=== PATIENT | female | born 1935 | race Asian ===

== ENCOUNTER 2021-01-11 20:15 | Inpatient (IN) | payer MEDICARE, MEDICAID ==
[~2021-01-11] VITALS: Ht 160 cm; Wt 56.7 kg
[2021-01-11] MEDS ORDERED: SODIUM CHLORIDE 0.9% 1,000 ML IV ONE (22:00)
[2021-01-11 22:46] LABS: BASOPHILS % 0.5 % (0.0-2.0); HEMATOCRIT. 47.4 % (36.0-48.0); HEMOGLOBIN. 16.4 g/dL (12.0-16.0); LYMPHOCYTES % 12.4 % (20.0-50.0); MEAN CORPUSCULAR HEMOGLOBIN 29.2 pg (28.0-32.0); MEAN CORPUSCULAR VOLUME 84.3 fL (81.0-99.0); MEAN PLATELET VOLUME 9.4 fl (7.4-10.4); MONOCYTES % 4.5 % (2.0-8.0); NEUTROPHILS % 82.6 % (40.0-76.0); PLATELET 280 x1000/uL (130-400); RED BLOOD CELL COUNT 5.62 mill/uL (4.2-5.4); RED CELL DISTRIBUTION WIDTH 13.5 % (11.6-14.6)
[2021-01-11 22:52] LABS: CHLORIDE 106 mEq/L (98-107)
[2021-01-11 23:00] LABS: CREATINE KINASE 861 IU/L (26-192)
[2021-01-12] MEDS ORDERED: ONDANSETRON HCL 4MG/2ML INJ IV PRN (02:45)
[2021-01-12] MEDS ORDERED: CLONIDINE 0.1MG TABLET PO PRN (02:45)
[2021-01-12] MEDS ORDERED: MAGNESIUM/ALUMINUM HYDROXIDE/SIMETHICONE 30ML UDC PO PRN (02:45)
[2021-01-12] MEDS ORDERED: GUAIFENESIN 200MG/10ML SUGAR FREE UDC PO PRN (02:45)
[2021-01-12] MEDS ORDERED: DOCUSATE SODIUM 100MG CAPSULE PO PRN (02:45)
[2021-01-12] MEDS: SODIUM CHLORIDE 0.45% 1,000 ML IV SCH ×2 (03:02→16:58)
[2021-01-12 06:42] LABS: CREATINE KINASE 429 IU/L (26-192)
[2021-01-12] MEDS: ASPIRIN 81MG EC TABLET PO SCH (10:02)
[2021-01-12] MEDS: AMLODIPINE 10MG TABLET PO SCH (10:03)
[2021-01-12 14:02] LABS: CREATINE KINASE 294 IU/L (26-192)
[2021-01-12 20:40] LABS: CLARITY URINE CLOUDY (CLEAR); COLOR URINE YELLOW (YELLOW); KETONES URINE TRACE (NEGATIVE); LEUKOCYTE ESTERASE URINE 3+ (NEGATIVE); NITRITE URINE NEGATIVE (NEGATIVE); OCCULT BLOOD URINE 2+ (NEGATIVE); PROTEIN URINE 2+ (NEGATIVE); SPECIFIC GRAVITY URINE 1.017 (1.005-1.030); UROBILINOGEN URINE 0.2 E.U./dL (0.2-1.0)
[2021-01-12 21:40] VITALS: BP 132/72
[2021-01-12 21:50] VITALS: BP 132/72
[2021-01-13] VITALS: BP 165/80
[2021-01-13] MEDS: SODIUM CHLORIDE 0.45% 1,000 ML IV SCH ×2 (05:26→18:59)
[2021-01-13 06:00] VITALS: BP 159/78
[2021-01-13 08:00] VITALS: BP 119/68
[2021-01-13 08:02] LABS: CHLORIDE 114 mEq/L (98-107)
[2021-01-13 08:10] LABS: LDL CHOLESTEROL 125 mg/dL (5-100)
[2021-01-13 08:11] LABS: BASOPHILS % 0.6 % (0.0-2.0); EOSINOPHILS % 0.8 % (0.0-5.0); HEMATOCRIT. 40.2 % (36.0-48.0); HEMOGLOBIN. 13.6 g/dL (12.0-16.0); LYMPHOCYTES % 12.2 % (20.0-50.0); MEAN CORPUSCULAR HEMOGLOBIN 28.7 pg (28.0-32.0); MEAN PLATELET VOLUME 9.6 fl (7.4-10.4); MONOCYTES % 7.6 % (2.0-8.0); NEUTROPHILS % 78.8 % (40.0-76.0); PLATELET 243 x1000/uL (130-400); RED BLOOD CELL COUNT 4.73 mill/uL (4.2-5.4); RED CELL DISTRIBUTION WIDTH 13.9 % (11.6-14.6)
[2021-01-13 08:12] LABS: HDL CHOLESTEROL 42 mg/dL (40-59)
[2021-01-13] MEDS: AMLODIPINE 10MG TABLET PO SCH (08:58)
[2021-01-13] MEDS: ASPIRIN 81MG EC TABLET PO SCH (08:58)
[2021-01-13] MEDS ORDERED: CEFTRIAXONE 1 G PREMIX 50 ML IV SCH (11:00)
[2021-01-13 12:00] VITALS: BP 147/44
[2021-01-13] MEDS: CEFTRIAXONE 1,000 MG in DEXTROSE 5% WATER 50 ML IV SCH (14:15)
[2021-01-13] MEDS: ACETAMINOPHEN 325MG TABLET PO PRN (14:21)
[2021-01-13 16:00] VITALS: BP 146/70
[2021-01-13] MEDS ORDERED: DEXTROSE 50% WATER 50ML SYRINGE IV PRN (16:00)
[2021-01-13] MEDS: BLOOD SUGAR DIAGNOSTIC STRIP TEST SCH ×2 (17:20→20:27)
[2021-01-13] MEDS: INSULIN LISPRO 100 UNITS/ML SUBCUT SCH ×2 (17:24→20:27)
[2021-01-13] MEDS ORDERED: FISH MT (18:17)
[2021-01-13] MEDS ORDERED: AMLO5TAB88 MT (18:17)
[2021-01-13] MEDS ORDERED: METF-414 MT (18:17)
[2021-01-13] MEDS ORDERED: TROL141. TP (18:17)
[2021-01-13] MEDS ORDERED: DONE5TAB26 MT (18:17)
[2021-01-13] MEDS ORDERED: ATOR20TA65 MT (18:17)
[2021-01-13] MEDS ORDERED: CHOL1CRY2 MC (18:17)
[2021-01-13] MEDS ORDERED: CIPR250S3 MT (18:17)
[2021-01-13] MEDS ORDERED: TOPUD PO (18:17)
[2021-01-13] MEDS ORDERED: GABA-529 MT (18:17)
[2021-01-13 20:00] VITALS: BP 138/54
[2021-01-14] VITALS: BP 155/67
[2021-01-14 04:00] VITALS: BP 151/61
[2021-01-14] MEDS: BLOOD SUGAR DIAGNOSTIC STRIP TEST SCH ×3 (07:20→16:56)
[2021-01-14] MEDS: INSULIN LISPRO 100 UNITS/ML SUBCUT SCH ×3 (07:50→16:57)
[2021-01-14 08:00] VITALS: BP 161/59
[2021-01-14] MEDS: ASPIRIN 81MG EC TABLET PO SCH (09:29)
[2021-01-14] MEDS: AMLODIPINE 10MG TABLET PO SCH (09:30)
[2021-01-14] MEDS: ACETAMINOPHEN 325MG TABLET PO PRN (09:30)
[2021-01-14] MEDS ORDERED: ATORVASTATIN CALCIUM 20MG TABLET PO SCH (10:45)
[2021-01-14] MEDS ORDERED: DONEPEZIL HCL 5MG TABLET PO SCH (10:45)
[2021-01-14] MEDS ORDERED: FISH OIL/OMEGA-3 FATTY ACIDS 1000MG CAPSULE PO SCH (10:45)
[2021-01-14] MEDS: METFORMIN HCL 500MG TABLET PO SCH ×2 (11:25→16:53)
[2021-01-14] MEDS: GABAPENTIN 100MG CAPSULE PO SCH ×3 (11:25→16:53)
[2021-01-14 12:00] VITALS: BP 156/65
[2021-01-14] MEDS: CEFTRIAXONE 1,000 MG in DEXTROSE 5% WATER 50 ML IV SCH (13:15)
[2021-01-14 16:00] VITALS: BP 138/60
[2021-01-14 16:42] VITALS: BP 156/65
== END 2021-01-14 17:21 | DRG 557 ==
LOC: ER 20:15 → MICUSO 01-12 00:06 → 6EST 01-12 20:58
PROVIDERS: ADMIT Hospitalist; ATTEND Hospitalist
DX: M62.82 Rhabdomyolysis (principal); G82.50 Quadriplegia, unspecified; N39.0 Urinary tract infection, site not specified; N17.9 Acute kidney failure, unspecified; I10 Essential (primary) hypertension; G89.29 Other chronic pain; M25.511 Pain in right shoulder; E11.9 Type 2 diabetes mellitus without complications; Z60.2 Problems related to living alone; M47.812 Spondylosis without myelopathy or radiculopathy, cervical region; M48.02 Spinal stenosis, cervical region; Z86.73 Personal history of transient ischemic attack (TIA), and cerebral infarction without residual deficits; M25.512 Pain in left shoulder; R79.89 Other specified abnormal findings of blood chemistry; E78.00 Pure hypercholesterolemia, unspecified; R26.9 Unspecified abnormalities of gait and mobility; E04.1 Nontoxic single thyroid nodule; R62.7 Adult failure to thrive; W18.39XA Other fall on same level, initial encounter; Y93.89 Activity, other specified; Y92.89 Other specified places as the place of occurrence of the external cause; Y99.8 Other external cause status; Z68.22 Body mass index [BMI] 22.0-22.9, adult; R53.1 Weakness
CPT/HCPCS: 36415; 71045; 73030; 80053; 80061; 81003; 82550; 82962; 83036; 83605; 85025; 93005; 93970; 97116; 97162; 97166; 99285; J0696; J1815; J7030; J7060

== ENCOUNTER 2021-01-14 17:30 | Inpatient (IN) | payer MEDICARE, MEDICAID ==
[~2021-01-14] VITALS: Ht 149.9 cm; Wt 56.7 kg
[~2021-01-14 17:30] MED LIST: AMLO5TAB88 MT; ATOR20TA65 MT; CHOL1CRY2 MC; CIPR250S3 MT; DONE5TAB26 MT; FISH MT; GABA-529 MT; METF-414 MT; TOPUD PO; TROL141. TP
[2021-01-14 18:00] VITALS: BP 143/62
[2021-01-14] MEDS ORDERED: ONDANSETRON HCL 4MG/2ML INJ IV PRN (18:15)
[2021-01-14] MEDS ORDERED: DOCUSATE SODIUM 100MG CAPSULE PO PRN (18:15)
[2021-01-14] MEDS ORDERED: CLONIDINE 0.1MG TABLET PO PRN (18:15)
[2021-01-14] MEDS ORDERED: MAGNESIUM/ALUMINUM HYDROXIDE/SIMETHICONE 30ML UDC PO PRN (18:15)
[2021-01-14] MEDS ORDERED: GUAIFENESIN 200MG/10ML SUGAR FREE UDC PO PRN (18:15)
[2021-01-14] MEDS ORDERED: DEXTROSE 50% WATER 50ML SYRINGE IV PRN (18:15)
[2021-01-14 19:00] VITALS: BP 158/70
[2021-01-14] MEDS ORDERED: INFLUENZA VACCINE 05/PF 0.5 ML SYRINGE IM ONE (19:15)
[2021-01-14] MEDS ORDERED: PNEUMOCOCCAL 23-VAL P-SAC VAC 0.5 ML IM ONE (19:15)
[2021-01-14 20:00] VITALS: BP 143/62
[2021-01-14] MEDS ORDERED: CEFTRIAXONE 1,000 MG in DEXTROSE 5% WATER 50 ML IV SCH ×2 (20:00→20:30)
[2021-01-14] MEDS: BLOOD SUGAR DIAGNOSTIC STRIP TEST SCH (21:11)
[2021-01-14] MEDS: SODIUM CHLORIDE 0.45% 1,000 ML IV SCH (21:15)
[2021-01-14] MEDS: INSULIN LISPRO 100 UNITS/ML SUBCUT SCH (21:16)
[2021-01-15] MEDS ORDERED: MAGNESIUM/ALUMINUM HYDROXIDE/SIMETHICONE 30ML UDC PO PRN (02:15)
[2021-01-15] MEDS: INSULIN LISPRO 100 UNITS/ML SUBCUT SCH ×4 (05:44→21:00)
[2021-01-15] MEDS: BLOOD SUGAR DIAGNOSTIC STRIP TEST SCH ×4 (05:44→21:04)
[2021-01-15] MEDS: SODIUM CHLORIDE 0.45% 1,000 ML IV SCH ×2 (06:51→21:06)
[2021-01-15 07:50] VITALS: BP 168/78
[2021-01-15] MEDS: ASPIRIN 81MG EC TABLET PO SCH (08:29)
[2021-01-15] MEDS: METFORMIN HCL 500MG TABLET PO SCH ×2 (08:29→17:53)
[2021-01-15] MEDS: AMLODIPINE 10MG TABLET PO SCH (08:29)
[2021-01-15] MEDS: FISH OIL/OMEGA-3 FATTY ACIDS 1000MG CAPSULE PO SCH (08:29)
[2021-01-15] MEDS: GABAPENTIN 100MG CAPSULE PO SCH ×3 (08:29→17:53)
[2021-01-15] MEDS: ATORVASTATIN CALCIUM 20MG TABLET PO SCH (08:30)
[2021-01-15] MEDS: DONEPEZIL HCL 5MG TABLET PO SCH (08:30)
[2021-01-15] MEDS: ACETAMINOPHEN 325MG TABLET PO PRN (08:36)
[2021-01-15] MEDS ORDERED: ASPIRIN 81MG TABLET PO SCH (09:00)
[2021-01-15 09:16] LABS: BASOPHILS % 0.8 % (0.0-2.0); EOSINOPHILS % 3.1 % (0.0-5.0); HEMATOCRIT. 39.8 % (36.0-48.0); HEMOGLOBIN. 13.4 g/dL (12.0-16.0); LYMPHOCYTES % 18.6 % (20.0-50.0); MEAN CORPUSCULAR HEMOGLOBIN 28.9 pg (28.0-32.0); MEAN CORPUSCULAR VOLUME 86.2 fL (81.0-99.0); MEAN PLATELET VOLUME 9.3 fl (7.4-10.4); MONOCYTES % 8.1 % (2.0-8.0); NEUTROPHILS % 69.4 % (40.0-76.0); PLATELET 217 x1000/uL (130-400); RED BLOOD CELL COUNT 4.62 mill/uL (4.2-5.4); RED CELL DISTRIBUTION WIDTH 13.7 % (11.6-14.6)
[2021-01-15 09:18] LABS: CHLORIDE 109 mEq/L (98-107)
[2021-01-15] MEDS: CEFTRIAXONE 1,000 MG in DEXTROSE 5% WATER 50 ML IV SCH (14:17)
[2021-01-15] MEDS ORDERED: POTASSIUM CHLORIDE 20MEQ TABLET SR PO NR (14:45)
[2021-01-15 20:00] VITALS: BP 151/73
[2021-01-16 04:30] VITALS: BP 159/76
[2021-01-16] MEDS: ACETAMINOPHEN 325MG TABLET PO PRN ×2 (04:31→13:56)
[2021-01-16] MEDS: BLOOD SUGAR DIAGNOSTIC STRIP TEST SCH ×4 (05:25→20:24)
[2021-01-16] MEDS: INSULIN LISPRO 100 UNITS/ML SUBCUT SCH ×4 (05:25→20:24)
[2021-01-16 08:00] VITALS: BP 161/74
[2021-01-16] MEDS: ASPIRIN 81MG EC TABLET PO SCH (08:48)
[2021-01-16] MEDS: AMLODIPINE 10MG TABLET PO SCH (08:48)
[2021-01-16] MEDS: METFORMIN HCL 500MG TABLET PO SCH ×2 (08:48→17:17)
[2021-01-16] MEDS: DONEPEZIL HCL 5MG TABLET PO SCH (08:48)
[2021-01-16] MEDS: FISH OIL/OMEGA-3 FATTY ACIDS 1000MG CAPSULE PO SCH (08:48)
[2021-01-16] MEDS: GABAPENTIN 100MG CAPSULE PO SCH ×3 (08:49→17:17)
[2021-01-16] MEDS: ATORVASTATIN CALCIUM 20MG TABLET PO SCH (08:49)
[2021-01-16] MEDS: SODIUM CHLORIDE 0.45% 1,000 ML IV SCH ×2 (12:00→22:37)
[2021-01-16] MEDS: BISACODYL 5MG TABLET PO PRN (13:04)
[2021-01-16] MEDS: CEFTRIAXONE 1,000 MG in DEXTROSE 5% WATER 50 ML IV SCH (13:04)
[2021-01-16 13:22] LABS: CHLORIDE 108 mEq/L (98-107)
[2021-01-16] MEDS ORDERED: NA PHOS,M-B/NA PHOS,DI-BA ENEMA 118ML PR NR ×2 (13:30→18:30)
[2021-01-16 14:26] LABS: FOLIC ACID (FOLATE) SERUM 15.6 ng/mL (>5.38)
[2021-01-16 20:00] VITALS: BP 125/51
[2021-01-16] MEDS ORDERED: POTASSIUM CHLORIDE 20MEQ TABLET SR PO NR (20:45)
[2021-01-17] MEDS: BLOOD SUGAR DIAGNOSTIC STRIP TEST SCH ×4 (05:45→21:42)
[2021-01-17] MEDS: INSULIN LISPRO 100 UNITS/ML SUBCUT SCH ×4 (05:45→21:00)
[2021-01-17 08:20] VITALS: BP 153/66
[2021-01-17] MEDS: ATORVASTATIN CALCIUM 20MG TABLET PO SCH (08:32)
[2021-01-17] MEDS: ASPIRIN 81MG EC TABLET PO SCH (08:32)
[2021-01-17] MEDS: GABAPENTIN 100MG CAPSULE PO SCH ×3 (08:32→17:13)
[2021-01-17] MEDS: FISH OIL/OMEGA-3 FATTY ACIDS 1000MG CAPSULE PO SCH (08:32)
[2021-01-17] MEDS: DONEPEZIL HCL 5MG TABLET PO SCH (08:32)
[2021-01-17] MEDS: METFORMIN HCL 500MG TABLET PO SCH ×2 (08:33→17:13)
[2021-01-17] MEDS: AMLODIPINE 10MG TABLET PO SCH (08:33)
[2021-01-17] MEDS: SODIUM CHLORIDE 0.45% 1,000 ML IV SCH (13:21)
[2021-01-17] MEDS: CEFTRIAXONE 1,000 MG in DEXTROSE 5% WATER 50 ML IV SCH (13:21)
[2021-01-17 20:00] VITALS: BP 125/62
[2021-01-17] MEDS: OPTH EMULSION OP SCH (21:44)
[2021-01-17] MEDS: RESTASIS 0.05% OP SCH (21:44)
[2021-01-18] MEDS: SODIUM CHLORIDE 0.45% 1,000 ML IV SCH ×2 (02:00→16:18)
[2021-01-18] MEDS: BLOOD SUGAR DIAGNOSTIC STRIP TEST SCH ×4 (06:38→21:02)
[2021-01-18 07:49] VITALS: BP 148/63
[2021-01-18] MEDS: METFORMIN HCL 500MG TABLET PO SCH ×2 (08:44→16:18)
[2021-01-18] MEDS: ATORVASTATIN CALCIUM 20MG TABLET PO SCH (08:44)
[2021-01-18] MEDS: DONEPEZIL HCL 5MG TABLET PO SCH (08:44)
[2021-01-18] MEDS: FISH OIL/OMEGA-3 FATTY ACIDS 1000MG CAPSULE PO SCH (08:44)
[2021-01-18] MEDS: GABAPENTIN 100MG CAPSULE PO SCH ×3 (08:44→16:18)
[2021-01-18] MEDS: AMLODIPINE 10MG TABLET PO SCH (08:44)
[2021-01-18] MEDS: ASPIRIN 81MG EC TABLET PO SCH (08:44)
[2021-01-18] MEDS: OPTH EMULSION OP SCH ×2 (08:45→21:03)
[2021-01-18] MEDS: INSULIN LISPRO 100 UNITS/ML SUBCUT SCH ×4 (08:45→21:00)
[2021-01-18] MEDS: RESTASIS 0.05% OP SCH ×2 (08:45→21:03)
[2021-01-18] MEDS: CYANOCOBALAMIN 1000MCG/ML VIAL IM SCH (11:20)
[2021-01-18 11:26] LABS: EOSINOPHILS % 4.6 % (0.0-5.0); HEMATOCRIT. 40.8 % (36.0-48.0); HEMOGLOBIN. 13.8 g/dL (12.0-16.0); LYMPHOCYTES % 20.6 % (20.0-50.0); MEAN CORPUSCULAR VOLUME 85.6 fL (81.0-99.0); MEAN PLATELET VOLUME 9.1 fl (7.4-10.4); MONOCYTES % 9.7 % (2.0-8.0); NEUTROPHILS % 64.1 % (40.0-76.0); PLATELET 288 x1000/uL (130-400); RED BLOOD CELL COUNT 4.77 mill/uL (4.2-5.4); RED CELL DISTRIBUTION WIDTH 13.3 % (11.6-14.6)
[2021-01-18 12:27] LABS: CHLORIDE 104 mEq/L (98-107)
[2021-01-18] MEDS ORDERED: CYANOCOBALAMIN 1000MCG/ML VIAL IM SCH (17:00)
[2021-01-18 20:00] VITALS: BP 124/66
[2021-01-19] MEDS: SODIUM CHLORIDE 0.45% 1,000 ML IV SCH ×2 (04:55→18:14)
[2021-01-19] MEDS: BLOOD SUGAR DIAGNOSTIC STRIP TEST SCH ×4 (07:07→21:46)
[2021-01-19 08:33] VITALS: BP 161/69
[2021-01-19] MEDS: FISH OIL/OMEGA-3 FATTY ACIDS 1000MG CAPSULE PO SCH (08:56)
[2021-01-19] MEDS: METFORMIN HCL 500MG TABLET PO SCH ×2 (08:57→17:08)
[2021-01-19] MEDS: GABAPENTIN 100MG CAPSULE PO SCH ×3 (08:57→17:08)
[2021-01-19] MEDS: DONEPEZIL HCL 5MG TABLET PO SCH (08:57)
[2021-01-19] MEDS: ATORVASTATIN CALCIUM 20MG TABLET PO SCH (08:57)
[2021-01-19] MEDS: CYANOCOBALAMIN 1000MCG/ML VIAL IM SCH (08:57)
[2021-01-19] MEDS: AMLODIPINE 10MG TABLET PO SCH (08:57)
[2021-01-19] MEDS: ASPIRIN 81MG EC TABLET PO SCH (08:57)
[2021-01-19] MEDS: OPTH EMULSION OP SCH ×2 (09:00→21:47)
[2021-01-19] MEDS: RESTASIS 0.05% OP SCH ×2 (09:00→21:47)
[2021-01-19] MEDS: INSULIN LISPRO 100 UNITS/ML SUBCUT SCH ×4 (09:00→21:00)
[2021-01-19 20:00] VITALS: BP 129/67
[2021-01-20 06:48] LABS: BASOPHILS % 1.4 % (0.0-2.0); EOSINOPHILS % 8.1 % (0.0-5.0); HEMATOCRIT. 37.3 % (36.0-48.0); HEMOGLOBIN. 12.4 g/dL (12.0-16.0); LYMPHOCYTES % 31.3 % (20.0-50.0); MEAN CORPUSCULAR HEMOGLOBIN 28.4 pg (28.0-32.0); MEAN CORPUSCULAR VOLUME 85.1 fL (81.0-99.0); MEAN PLATELET VOLUME 8.9 fl (7.4-10.4); NEUTROPHILS % 50.2 % (40.0-76.0); PLATELET 269 x1000/uL (130-400); RED BLOOD CELL COUNT 4.38 mill/uL (4.2-5.4); RED CELL DISTRIBUTION WIDTH 13.1 % (11.6-14.6)
[2021-01-20] MEDS: BLOOD SUGAR DIAGNOSTIC STRIP TEST SCH ×4 (06:48→21:33)
[2021-01-20] MEDS: INSULIN LISPRO 100 UNITS/ML SUBCUT SCH ×4 (06:49→21:00)
[2021-01-20] MEDS: SODIUM CHLORIDE 0.45% 1,000 ML IV SCH (06:52)
[2021-01-20 07:00] VITALS: BP 159/60
[2021-01-20 07:03] LABS: CHLORIDE 108 mEq/L (98-107)
[2021-01-20 07:18] LABS: CREATINE KINASE 46 IU/L (26-192)
[2021-01-20] MEDS: GABAPENTIN 100MG CAPSULE PO SCH ×3 (09:11→17:29)
[2021-01-20] MEDS: ASPIRIN 81MG EC TABLET PO SCH (09:11)
[2021-01-20] MEDS: FISH OIL/OMEGA-3 FATTY ACIDS 1000MG CAPSULE PO SCH (09:11)
[2021-01-20] MEDS: METFORMIN HCL 500MG TABLET PO SCH ×2 (09:11→17:29)
[2021-01-20] MEDS: DONEPEZIL HCL 5MG TABLET PO SCH (09:11)
[2021-01-20] MEDS: ATORVASTATIN CALCIUM 20MG TABLET PO SCH (09:11)
[2021-01-20] MEDS: AMLODIPINE 10MG TABLET PO SCH (09:12)
[2021-01-20] MEDS: CYANOCOBALAMIN 1000MCG/ML VIAL IM SCH (09:12)
[2021-01-20] MEDS: RESTASIS 0.05% OP SCH ×2 (09:18→21:35)
[2021-01-20] MEDS: OPTH EMULSION OP SCH ×2 (09:18→21:35)
[2021-01-20 20:00] VITALS: BP 109/62
[2021-01-21] MEDS: BLOOD SUGAR DIAGNOSTIC STRIP TEST SCH ×4 (06:45→20:02)
[2021-01-21] MEDS: INSULIN LISPRO 100 UNITS/ML SUBCUT SCH ×4 (06:46→21:18)
[2021-01-21 07:32] VITALS: BP 139/53
[2021-01-21] MEDS: RESTASIS 0.05% OP SCH ×2 (09:00→20:02)
[2021-01-21] MEDS: OPTH EMULSION OP SCH ×2 (09:00→20:02)
[2021-01-21] MEDS: CYANOCOBALAMIN 1000MCG/ML VIAL IM SCH (10:35)
[2021-01-21] MEDS: ASPIRIN 81MG EC TABLET PO SCH (10:35)
[2021-01-21] MEDS: AMLODIPINE 10MG TABLET PO SCH (10:36)
[2021-01-21] MEDS: FISH OIL/OMEGA-3 FATTY ACIDS 1000MG CAPSULE PO SCH (10:36)
[2021-01-21] MEDS: ATORVASTATIN CALCIUM 20MG TABLET PO SCH (10:36)
[2021-01-21] MEDS: DONEPEZIL HCL 5MG TABLET PO SCH (10:36)
[2021-01-21] MEDS: GABAPENTIN 100MG CAPSULE PO SCH ×3 (10:36→16:41)
[2021-01-21] MEDS: METFORMIN HCL 500MG TABLET PO SCH ×2 (10:36→16:41)
[2021-01-21 20:00] VITALS: BP 131/54
[2021-01-22] MEDS: BLOOD SUGAR DIAGNOSTIC STRIP TEST SCH ×4 (05:16→20:48)
[2021-01-22] MEDS: INSULIN LISPRO 100 UNITS/ML SUBCUT SCH ×4 (05:16→22:33)
[2021-01-22 07:53] VITALS: BP 135/51
[2021-01-22] MEDS: RESTASIS 0.05% OP SCH ×2 (09:00→20:48)
[2021-01-22] MEDS: OPTH EMULSION OP SCH ×2 (09:00→20:48)
[2021-01-22] MEDS: ASPIRIN 81MG EC TABLET PO SCH (09:53)
[2021-01-22] MEDS: DONEPEZIL HCL 5MG TABLET PO SCH (09:53)
[2021-01-22] MEDS: ATORVASTATIN CALCIUM 20MG TABLET PO SCH (09:53)
[2021-01-22] MEDS: METFORMIN HCL 500MG TABLET PO SCH ×2 (09:53→16:42)
[2021-01-22] MEDS: FISH OIL/OMEGA-3 FATTY ACIDS 1000MG CAPSULE PO SCH (09:53)
[2021-01-22] MEDS: CYANOCOBALAMIN 1000MCG/ML VIAL IM SCH (09:53)
[2021-01-22] MEDS: GABAPENTIN 100MG CAPSULE PO SCH ×3 (09:53→16:42)
[2021-01-22] MEDS: AMLODIPINE 10MG TABLET PO SCH (09:53)
[2021-01-22 20:00] VITALS: BP 137/60
[2021-01-23] MEDS: BLOOD SUGAR DIAGNOSTIC STRIP TEST SCH ×4 (05:20→20:11)
[2021-01-23] MEDS: INSULIN LISPRO 100 UNITS/ML SUBCUT SCH ×4 (05:20→20:11)
[2021-01-23 08:09] VITALS: BP 169/67
[2021-01-23] MEDS: GABAPENTIN 100MG CAPSULE PO SCH ×3 (09:38→17:02)
[2021-01-23] MEDS: ASPIRIN 81MG EC TABLET PO SCH (09:38)
[2021-01-23] MEDS: AMLODIPINE 10MG TABLET PO SCH (09:38)
[2021-01-23] MEDS: FISH OIL/OMEGA-3 FATTY ACIDS 1000MG CAPSULE PO SCH (09:39)
[2021-01-23] MEDS: METFORMIN HCL 500MG TABLET PO SCH ×2 (09:39→17:02)
[2021-01-23] MEDS: DONEPEZIL HCL 5MG TABLET PO SCH (09:39)
[2021-01-23] MEDS: ATORVASTATIN CALCIUM 20MG TABLET PO SCH (09:39)
[2021-01-23] MEDS: CYANOCOBALAMIN 1000MCG/ML VIAL IM SCH (09:43)
[2021-01-23] MEDS: RESTASIS 0.05% OP SCH ×2 (09:43→20:11)
[2021-01-23] MEDS: OPTH EMULSION OP SCH ×2 (09:43→20:11)
[2021-01-23 15:09] LABS: 25-HYDROXY VITAMIN D3 39 ng/mL (.)
[2021-01-23 20:00] VITALS: BP 121/58
[2021-01-24] MEDS: BLOOD SUGAR DIAGNOSTIC STRIP TEST SCH ×4 (05:16→21:09)
[2021-01-24] MEDS: INSULIN LISPRO 100 UNITS/ML SUBCUT SCH ×4 (05:16→21:00)
[2021-01-24] MEDS: BISACODYL 5MG TABLET PO PRN (05:16)
[2021-01-24 07:49] VITALS: BP 162/59
[2021-01-24] MEDS: ATORVASTATIN CALCIUM 20MG TABLET PO SCH (08:34)
[2021-01-24] MEDS: DONEPEZIL HCL 5MG TABLET PO SCH (08:34)
[2021-01-24] MEDS: METFORMIN HCL 500MG TABLET PO SCH ×2 (08:34→16:09)
[2021-01-24] MEDS: GABAPENTIN 100MG CAPSULE PO SCH ×3 (08:34→16:09)
[2021-01-24] MEDS: FISH OIL/OMEGA-3 FATTY ACIDS 1000MG CAPSULE PO SCH (08:34)
[2021-01-24] MEDS: ASPIRIN 81MG EC TABLET PO SCH (08:34)
[2021-01-24] MEDS: CYANOCOBALAMIN 1000MCG/ML VIAL IM SCH (08:35)
[2021-01-24] MEDS: AMLODIPINE 10MG TABLET PO SCH (08:35)
[2021-01-24] MEDS: OPTH EMULSION OP SCH ×2 (08:39→21:10)
[2021-01-24] MEDS: RESTASIS 0.05% OP SCH ×2 (08:39→21:10)
[2021-01-24] MEDS ORDERED: ERGOCALCIFEROL 50000UNITS CAPSULE PO SCH (11:00)
[2021-01-24 20:00] VITALS: BP 144/60
[2021-01-25] MEDS: BLOOD SUGAR DIAGNOSTIC STRIP TEST SCH ×4 (05:51→20:49)
[2021-01-25] MEDS: INSULIN LISPRO 100 UNITS/ML SUBCUT SCH ×4 (05:51→20:55)
[2021-01-25 07:30] LABS: CHLORIDE 105 mEq/L (98-107)
[2021-01-25 07:50] VITALS: BP 174/65
[2021-01-25] MEDS: ATORVASTATIN CALCIUM 20MG TABLET PO SCH (08:16)
[2021-01-25] MEDS: GABAPENTIN 100MG CAPSULE PO SCH ×3 (08:17→16:06)
[2021-01-25] MEDS: METFORMIN HCL 500MG TABLET PO SCH ×2 (08:17→16:06)
[2021-01-25] MEDS: ASPIRIN 81MG EC TABLET PO SCH (08:17)
[2021-01-25] MEDS: AMLODIPINE 10MG TABLET PO SCH (08:17)
[2021-01-25] MEDS: DONEPEZIL HCL 5MG TABLET PO SCH (08:17)
[2021-01-25] MEDS: FISH OIL/OMEGA-3 FATTY ACIDS 1000MG CAPSULE PO SCH (08:17)
[2021-01-25] MEDS: RESTASIS 0.05% OP SCH ×2 (08:21→20:50)
[2021-01-25] MEDS: OPTH EMULSION OP SCH ×2 (08:21→20:50)
[2021-01-25 20:00] VITALS: BP 129/56
[2021-01-26] MEDS: BLOOD SUGAR DIAGNOSTIC STRIP TEST SCH ×4 (05:50→20:35)
[2021-01-26] MEDS: INSULIN LISPRO 100 UNITS/ML SUBCUT SCH ×4 (05:51→20:36)
[2021-01-26 08:24] VITALS: BP 177/58
[2021-01-26] MEDS: FISH OIL/OMEGA-3 FATTY ACIDS 1000MG CAPSULE PO SCH (08:26)
[2021-01-26] MEDS: AMLODIPINE 10MG TABLET PO SCH (08:26)
[2021-01-26] MEDS: DONEPEZIL HCL 5MG TABLET PO SCH (08:26)
[2021-01-26] MEDS: RESTASIS 0.05% OP SCH ×2 (08:27→20:34)
[2021-01-26] MEDS: GABAPENTIN 100MG CAPSULE PO SCH ×3 (08:27→17:23)
[2021-01-26] MEDS: ASPIRIN 81MG EC TABLET PO SCH (08:27)
[2021-01-26] MEDS: ATORVASTATIN CALCIUM 20MG TABLET PO SCH (08:27)
[2021-01-26] MEDS: METFORMIN HCL 500MG TABLET PO SCH ×2 (08:27→17:23)
[2021-01-26] MEDS: OPTH EMULSION OP SCH ×2 (08:27→20:34)
[2021-01-26 20:00] VITALS: BP 134/65
[2021-01-27] MEDS: INSULIN LISPRO 100 UNITS/ML SUBCUT SCH ×2 (05:47→12:17)
[2021-01-27] MEDS: BLOOD SUGAR DIAGNOSTIC STRIP TEST SCH ×2 (05:47→11:15)
[2021-01-27 08:00] VITALS: BP 157/60
[2021-01-27] MEDS: DONEPEZIL HCL 5MG TABLET PO SCH (08:24)
[2021-01-27] MEDS: ATORVASTATIN CALCIUM 20MG TABLET PO SCH (08:24)
[2021-01-27] MEDS: GABAPENTIN 100MG CAPSULE PO SCH ×2 (08:24→14:18)
[2021-01-27] MEDS: AMLODIPINE 10MG TABLET PO SCH (08:24)
[2021-01-27] MEDS: RESTASIS 0.05% OP SCH (08:24)
[2021-01-27] MEDS: METFORMIN HCL 500MG TABLET PO SCH (08:24)
[2021-01-27] MEDS: ASPIRIN 81MG EC TABLET PO SCH (08:24)
[2021-01-27] MEDS: OPTH EMULSION OP SCH (08:24)
[2021-01-27] MEDS: FISH OIL/OMEGA-3 FATTY ACIDS 1000MG CAPSULE PO SCH (08:24)
[2021-01-27 15:06] VITALS: BP 125/49
[2021-01-31] MEDS ORDERED: CYANOCOBALAMIN 1000MCG/ML VIAL IM SCH (09:00)
== END 2021-01-27 16:30 | DRG 551 ==
PROVIDERS: ADMIT Physical Medicine & Rehabilitation Spinal Cord Injury Medicine; ATTEND Hospitalist
DX: M48.02 Spinal stenosis, cervical region (principal); G82.50 Quadriplegia, unspecified; M62.82 Rhabdomyolysis; N39.0 Urinary tract infection, site not specified; N17.9 Acute kidney failure, unspecified; E44.0 Moderate protein-calorie malnutrition; M47.812 Spondylosis without myelopathy or radiculopathy, cervical region; R79.89 Other specified abnormal findings of blood chemistry; E78.00 Pure hypercholesterolemia, unspecified; E04.2 Nontoxic multinodular goiter; E11.9 Type 2 diabetes mellitus without complications; I10 Essential (primary) hypertension; E78.5 Hyperlipidemia, unspecified; M19.90 Unspecified osteoarthritis, unspecified site; E87.6 Hypokalemia; R26.89 Other abnormalities of gait and mobility; Z86.73 Personal history of transient ischemic attack (TIA), and cerebral infarction without residual deficits; E55.9 Vitamin D deficiency, unspecified; W18.30XA Fall on same level, unspecified, initial encounter; F03.90 Unspecified dementia, unspecified severity, without behavioral disturbance, psychotic disturbance, mood disturbance, and anxiety; F32.A Depression, unspecified; F41.9 Anxiety disorder, unspecified
CPT/HCPCS: 36415; 71045; 80048; 80053; 82306; 82550; 82607; 82746; 82962; 83036; 84134; 84443; 85025; 87426; 90686; 90732; 92523; 93970; 97110; 97112; 97116; 97150; 97162; 97166; 97530; 97535; J0696; J1815; J3420; J7040; J7060